=== PATIENT | female | born 1980 | race Caucasian/White ===

== ENCOUNTER 2019-11-05 08:21 | Emergency (ER) | payer MEDICAID ==
[~2019-11-05] VITALS: Ht 160 cm; Wt 82.5 kg
[2019-11-05 08:29] VITALS: BP 119/83
== END 2019-11-05 09:15 | disposition home or self-care (01) ==
LOC: ED 08:45
DX: K08.89 Other specified disorders of teeth and supporting structures (principal)
CPT/HCPCS: 99283